=== PATIENT | male | born 1970 | race Two or more races ===

== ENCOUNTER 2020-04-01 10:36 | Outpatient (CLI) | payer OTHER | END 2020-04-01 10:54 | disposition home or self-care (01) | LOC: RX STUDY 10:36 | PROVIDERS: ATTEND Otolaryngology | DX: R13.13 Dysphagia, pharyngeal phase (principal) ==

== ENCOUNTER 2021-10-15 05:59 | Day surgery (SDC) | payer OTHER | END 2021-10-15 12:30 | disposition home or self-care (01) | LOC: CIR.AMB 05:59 | PROVIDERS: ATTEND Surgery Surgery of the Hand | DX: M65.322 Trigger finger, left index finger (principal); M65.312 Trigger thumb, left thumb; Z20.822 Contact with and (suspected) exposure to COVID-19; K29.70 Gastritis, unspecified, without bleeding ==